=== PATIENT | female | born 1985 | race Caucasian/White ===

== ENCOUNTER 2016-12-15 20:31 | Inpatient (IN) | payer OTHER ==
[2016-12-15 21:12] VITALS: BMI 34.6
[2016-12-15] MEDS ORDERED: Promethazine HCl 25 MG/ML VIAL IM/IV PRN (21:51)
[2016-12-15] MEDS ORDERED: Calcium Gluc 4.6 MEQ/10 ML (100 MG/ML) SLOW IVP PRN (21:56)
[2016-12-15] MEDS ORDERED: Magnesium Sulfate 20 GM/WATER 500 ML BAG IVPB SCH (22:00)
[2016-12-15] MEDS ORDERED: Lactated Ringer's 1,000 ML IV SCH (22:00)
[2016-12-15] MEDS ORDERED: Magnesium Sulfate 20 gm/500 ml 20 GM/500 ML BAG IVPB SCH (22:00)
--- NOTE | 2016-12-15 22:03 | PRG ---
DATE OF SERVICE: 12/15/2016 FOLLOWUP DICTATION (cervical exam) TIME: 21:49 LOCATION: Labor and delivery. In brief, the LICENSED THERAPIST-3 has been collected and has been sent down to the laboratory. I performed a cervical digital examination after that was collected. The cervix is 3 cm dilated, 50% effaced with the bag of brady noted through the cervix. I have relayed the information of cervical dilation to the patient and we will now notify her primary caring provider/Dr. Wilson about the patient's cervical dilation status at 30 weeks and 6 days. I have also put in an order for a stat obstetrical ultrasound for estimated weight and presentation. I will also order Celestone for lung maturation and IV fluid hydration. I will leave the remainder of the care to Dr. Wilson. DX: 1. PCD vs PTL 2. 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 On Lovenox (check anti-factror Xa) 4. NICU notification MTDD
[2016-12-15] MEDS: Betamet Acet/Betamet Na Ph 30 MG/5 ML VIAL IM SCH (22:24)
[2016-12-15] MEDS: Lactated Ringer's 1,000 ML IV SCH (22:45)
[2016-12-15 23:03] LABS: #Eosinphils 0.2 thou/uL (0.0-0.7); #Lymphocytes 2.9 thou/uL (1.20-3.40); #Monocytes 0.7 thou/uL (0.11-0.59); #Neutrophils 8.7 thou/uL (1.40-6.50); %Basophils 0.3 % (0.0-1.0); %Eosinophils 1.7 % (0.0-10.0); %Lymphocytes 22.9 % (21.0-51.0); %Monocytes 5.9 % (0.0-10.0); Hematocrit 37.1 % (36.0-47.0); Mean Platelet Volume 8.4 fL (7.4-10.4); Red Blood Cell (RBC) Count 3.92 mill/uL (4.20-5.40); White Blood Cell (WBC) Count 12.6 thou/uL (4.8-10.8)
[2016-12-15] MEDS ORDERED: Morphine PF 1 MG/ML SYR ONE (23:06)
[2016-12-15] MEDS ORDERED: Ondansetron HCl/PF 4 MG/2 ML Vial ONE (23:07)
[2016-12-15] MEDS ORDERED: Oxytocin 10 UNITS/ML VIAL ONE (23:07)
[2016-12-15] MEDS ORDERED: CEFAZOLIN/Water 2 GM/20 ML SYRINGE SLOW IVP SCH (23:15)
[2016-12-15] MEDS ORDERED: Bicitra 30 ML UDCUP PO SCH (23:15)
[2016-12-15] MEDS ORDERED: ePHEDrine/0.9% NaCl/PF SYRINGE 50 mg/10 ml ONE (23:48)
--- NOTE | 2016-12-15 23:56 | PRG ---
DATE OF SERVICE: 12/15/2016 CRM MARKETING ANALYST NOTE In brief, I was asked by Dr. Katarina Wilson to assist with a primary section. The patient is currently in the OR in Labor and Delivery undergoing the spinal anesthetic. For full details of this procedure, please see the operative note to follow by Dr. Wilson.
--- NOTE | 2016-12-16 | ULT ---
OB ULTRASOUND: 12/15/16 HISTORY: labor. Real time images of the pelvis shows a single viable intrauterine in the breech presentati on. heart rate is 147 beats per minute. The amniotic fluid index is 11. The placenta is choir member ior and more fundal in location. measurements are as follows: BPD 7.4 cm 29 weeks, 4 days Head circumference 29.8 cm 30 weeks, 3 days Abdominal circumference 25.2 cm 29 weeks, 3 days Femur length 5.6 cm 29 weeks, 4 days Limited evaluation of anatomy was performed. No anomalies detected. There appears to be an ope n cervical os present with fluid in the region of the cervix. IMPRESSION: 1. Single viable intrauterine in a breech presentation. Overall measurements correspo nding to a gestational age of 29 weeks, 5 days. Estimated date of delivery 02/25/17. 2. Estimated weight 1420 plus or minus 210 grams. 3. Placenta which is posterior in location and more fundal. POS: [facility]
[2016-12-16] MEDS ORDERED: Promethazine HCl 25 MG/ML VIAL SLOW IVP PRN (00:46)
[2016-12-16] MEDS ORDERED: Morphine Sulfate 2 MG/ML SYRINGE SLOW IVP PRN (00:46)
[2016-12-16] MEDS ORDERED: Promethazine HCl 25 MG/ML VIAL IM PRN ×3 (00:46→00:58)
[2016-12-16] MEDS ORDERED: Promethazine HCl 25 MG SUPP PR PRN (00:47)
[2016-12-16] MEDS ORDERED: Ondansetron HCl/PF 4 MG/2 ML Vial IVP PRN ×2 (00:47→00:58)
[2016-12-16] MEDS ORDERED: Eucerin (Mineral Oil/Petrolatum,White) 30 gm Jar TOP PRN (00:47)
[2016-12-16] MEDS ORDERED: Naloxone HCl 0.4 mg/ml Vial IVP PRN ×2 (00:47)
[2016-12-16] MEDS ORDERED: Ketorolac Tromethamine 30 MG/ML VIAL IVP PRN (00:47)
[2016-12-16] MEDS ORDERED: Naloxone HCl 0.4 mg/ml Vial IV PRN (00:47)
--- NOTE | 2016-12-16 00:49 | PRG ---
DATE OF SERVICE: 12/15/2016 TIME: 2300 LOCATION: Labor and Delivery, bed #6. In brief, approximately 20 minutes ago, we performed a repeat cervical examination, which revealed t hat the cervix was 5 cm dilated. Ultrasound was in the room and confirmed that the baby was in a br eech malpresentation. There was some concern of possibly ruptured membranes; however, the bag was felt to be intact on vaginal exam. Since examination, I have been discussing the case with suhas natology, and the nursing staff. Anesthesia has also been made aware. The patient last used her he kel 24 hours ago, which decrease her risk of bleeding intraop. Nonetheless, I did advise protamin e sulfate to be in the room if necessary. The plan of care has been discussed with the patient and her . We will give the magnesium sulfate bolus for neuro protection as soon as possible as w e await anesthesia availability. Once again the diagnosis was made of active labor at 31 w eeks with footling breech. There also appears to be a hand in the lower uterine segment. Due to fe margret malpresentation, we will proceed with primary . Dr. Katarina Wilson is aware and i s on the way to the hospital.
[2016-12-16] MEDS ORDERED: Lanolin Ointment 7 GM TUBE TOP PRN (00:58)
[2016-12-16] MEDS ORDERED: Simethicone Chewable 80 MG TAB PO PRN (00:58)
[2016-12-16] MEDS ORDERED: Adacel (T-DAP) 0.5 ML VIAL IM ONE (00:58)
[2016-12-16] MEDS ORDERED: HYDROcodone/Acetaminophen 5/325 mg Tablet PO PRN (00:58)
[2016-12-16] MEDS ORDERED: Zolpidem Tartrate 5 MG TAB PO PRN (00:58)
[2016-12-16] MEDS ORDERED: Communication Order-Pharmacy FS SCH (01:00)
[2016-12-16] MEDS ORDERED: LR w/ Pitocin 40 units/1000 ML BAG IV SCH (01:00)
--- NOTE | 2016-12-16 01:01 | PRG ---
DATE OF SERVICE: 12/15/2016 TIME: 2129 This is a patient of Dr. Katarina Wilson. REASON FOR EVALUATION: The patient at 30 weeks and 6 days with white discharge and irregular contractions/cramps. HISTORY OF PRESENT ILLNESS: In brief, this is a patient who had a handwritten progress note/history and physical in the physical chart. For full details, please see that right up. In brief, she is a 31-year-old G6, P1 with 6 prior miscarriages who has been diagnosed with thrombophilia and is on Lovenox, low dose aspirin, and metformin. She is at 30 weeks and 6 days. She was told to come to Labor and Delivery by Dr. Wilson who wanted her evaluated for white discharge and possible contractions. PAST SURGICAL HISTORY: Includes tonsils and adenoids, breast augmentation, ACL surgery x2 and D and C x3. ALLERGIES: ZITHROMAX. REVIEW OF SYSTEMS: Complete review of systems was checked and is otherwise negative unless specified in the HPI. She has good movement and denies leakage of fluid or vaginal bleeding. Metformin is per HPI. PHYSICAL EXAMINATION: VITAL SIGNS: Blood pressure is 124/72, pulse is 76, temperature is 98.2, respiration is 18. GENERAL: Clinically, she is in no acute distress. PELVIC: Pelvic exam was currently deferred until SHOE IRONER-3 was obtained after which a cervical digital examination will be performed by me. Nonstress test is reactive per dates (after 32 weeks), but there is no evidence of contractions. There is no evidence of pathological decelerations. ASSESSMENT: This is multigravida who has a history of thrombophilia, currently on anticoagulation with Lovenox per her primary MD. She is also on low dose aspirin. PLAN: 1. Check SHOE IRONER-3. 2. Cervical check after SHOE IRONER-3. 3. monitors. 4. Notify Dr. Katarina Wilson after the plan of care evaluated and after test return. DUNIA
--- NOTE | 2016-12-16 01:15 | PRG ---
DATE OF SERVICE: 12/15/2016 TIME OF DICTATION: 2155 hours Follow up with Dr. Wilson. In brief, I just reviewed the patient's current medical condition with Dr. Wilson on the phone. She is covering for Dr. Powell. We reviewed if the patient is a factor V carrier on Lovenox. Due to her cervical dilation versus labor, we will admit for steroid administration. 1. We will give IV magnesium for neuroprotection. 2. We will notify NICU. 3. We will get an ultrasound for estimated weight. 4. Routine labs. 5. Sequential compression devices for venous thromboembolism prevention and hold Lovenox. 6. I suspect that she may be breech based on exam, but we will get the ultrasound to confirm positi on and EFW. 7. Dr. Wilson aware and we will assume care. 8. Her magnesium sulfate will be for neuroprotection not for tocolysis. If tocolysis is needed, we will begin a calcium channel kalen per guidelines.
[2016-12-16 03:17] LABS: CO2 Tension (PaCO2) 37.3 mmHg (44.0-56.0)
[2016-12-16] MEDS ORDERED: Oxytocin 10 UNITS/ML VIAL ONE (03:17)
[2016-12-16 05:37] LABS: Hematocrit 35.3 % (36.0-47.0); Mean Platelet Volume 8.9 fL (7.4-10.4); Red Blood Cell (RBC) Count 3.73 mill/uL (4.20-5.40); White Blood Cell (WBC) Count 17.4 thou/uL (4.8-10.8)
--- NOTE | 2016-12-16 05:55 | OP ---
DATE OF SERVICE: 12/15/2016 ADMITTING DIAGNOSES: 1. A 31-year-old G8, P0-1-6-1 at 30 weeks and 1 day with labor. 2. Intact membranes. 3. Group B streptococcus status unknown. 4. 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 5. 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 6. History of subchorionic bleed this . POSTOPERATIVE DIAGNOSES: 1. A 31-year-old G8, P0-1-6-1 at 30 weeks and 1 day with labor. 2. Intact membranes. 3. Group B streptococcus status unknown. 4. 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 5. 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 6. History of subchorionic bleed this . 7. Liveborn female infant weighing 3 pounds 7 ounces. Apgars unavailable at the time of delivery. CLINICAL HISTORY: This patient is a 31-year-old who called the evening of presentation with a compl aint of contractions or cramps that have been consistent in her lower back. She was also complainin g of pressure as well as increase in discharge and just all over malaise. The patient had tried hyd ration and rest; however, her symptoms seem to continue to escalate. The patient was advised to go to her registered hospital at [facility] for evaluation and treatment, especially given the fact lew t she has a poor OB history and the history of complex thrombophilia for the . The patient has been on Lovenox and her last dose was greater than 24 hours. She was evaluated by Dr. Bakari simon, the laborist at [facility] and was noted to be stable with overall reassuring tracing with irr itability. The exam concluded with a sterile vaginal exam, which noted that the patient was 3-cm di lated approximately 70%-80% effaced. At that point in time, the patient was admitted and placed on magnesium for neuro protection. She was also given 1 dose of betamethasone for lung mat urity and was on continuous monitoring. Ultrasound was ordered for overall evaluation of fetus with estimated growth and DOMINIQUE as well as position, it was noted that the fetus was breech. Normal DOMINIQUE and overall active baby with intact membranes. The patient shortly after the ultrasound did fa il a gush of fluid. She was checked again and was noted to not be ruptured; however, she had advanc ed and cervical dilation from 3 cm to 5 cm, 80% effaced. At that time, the group partner was called to come in for management and care. The patient was consented and taken to the operating room samson lucero the procedure was as follows. DETAILS OF PROCEDURE: The patient was taken to the operating room where spinal anesthesia was obtai prakash. She was placed in the supine position with leftward tilt. She was prepped and draped in the u sual sterile fashion and the heart tones were evaluated. Once the patient was appropriately p repped and draped, and the Noe catheter was placed. She was tested for appropriate anesthesia and an incision was made in the lower abdomen in a Pfannenstiel manner with scalpel. This was carried down to the fascia with the Bovie cautery and the fascia was nicked in the midline. This incision w as extended with sharp dissection. The Tyree clamps were used x2 to elevate the rectus muscles off the superior fascial border and then in similar fashion, the rectus and pyramidalis muscles were di ssected from the lower border. The rectus muscles were then in the midline and the perito neum was bluntly entered and this incision was extended. A bladder blade was placed and the anterio r surface of the uterus was swept with surgeon's hand and no adhesions were noted. The scalpel was used to make an incision in the lower uterine segment and an amniotomy was performed. The amnion fl uid was clear. The surgeon's hand was then placed into the uterus and the buttocks were deliv ered through the incision. The legs were then delivered, the anterior shoulder followed by the post erior shoulder, and then a tilt of the head resulted in delivery of the head. The cord was do ubly clamped and cut, and the fetus was taken over to the team in attendance to the deliver y for continued care. The cord blood was obtained. A section of the umbilical cord was taken for c ord gas; however, it was noted that the cord was short and probably inappropriate sample. The place nta was then manually removed and sent off for pathology. The uterus was then exteriorized and marc nsed of all debris. The uterus was then closed in a running locking fashion with excellent hemostas is. A secondary suture was placed embricating over this one and then the bladder flap was reapproxi mated with a 4-0 Monocryl. The gutters were cleansed of all debris and the Seprafilm was placed ove r the uterus. The adnexal structures were noted to be normal on each side. The uterus was then giuliana piyush back inside the abdomen and the peritoneum was closed in a running fashion. The rectus muscles were then reapproximated with interrupted sutures and the prefascial gutters were cleansed of all de bris. The fascia was then closed with a running suture and the subcutaneous tissue was cleansed of all debris with copious irrigation. The subcutaneous tissue was reapproximated and secured with int errupted sutures in the 2-0 plain gut and the skin was closed with a 4-0 Monocryl. The patient tole rated the procedure well. The skin was reinforced with Steri-Strips and a pressure dressing was giuliana piyush over the incision. The patient was sent to the recovery room in satisfactory condition with her infant going to the NICU for continued care. All needle, sponge, lap, and instrument counts were c orrect x2 at the end of the procedure. There were no other issues surrounding this procedure. Aliyah mated blood loss was 500 mL and pathology for the placenta is pending.
[2016-12-16] MEDS: Ibuprofen 800 MG TAB PO SCH ×3 (08:26→22:35)
[2016-12-16] MEDS: Lactated Ringer's 1,000 ML IV SCH ×3 (08:26→22:36)
[2016-12-16] MEDS: Enoxaparin Sodium 40 MG/0.4 ML SYRINGE SC SCH (08:57)
[2016-12-16] MEDS: Prenatal Vitamin 1 TAB PO SCH (08:57)
[2016-12-16] MEDS: Docusate (Surfak) 240 MG CAP PO SCH ×2 (08:57→22:35)
[2016-12-16] MEDS ORDERED: Escitalopram Oxalate 20 mg Tablet PO SCH (13:30)
[2016-12-16] MEDS: diphenhydrAMINE 50 MG/ML VIAL IVP PRN ×2 (15:14→22:35)
[2016-12-16] MEDS: Betamet Acet/Betamet Na Ph 30 MG/5 ML VIAL IM SCH (19:32)
[2016-12-16] MEDS ORDERED: Sodium Chloride 0.9% 10 ML ONE ×2 (20:00→21:36)
[2016-12-17] MEDS: Ibuprofen 800 MG TAB PO SCH ×3 (06:07→21:26)
[2016-12-17] MEDS: Lactated Ringer's 1,000 ML IV SCH ×3 (06:09→22:00)
[2016-12-17] MEDS ORDERED: Escitalopram Oxalate 20 mg Tablet PO SCH ×2 (09:00→21:00)
[2016-12-17] MEDS: Docusate (Surfak) 240 MG CAP PO SCH ×2 (11:00→21:26)
[2016-12-17] MEDS: Prenatal Vitamin 1 TAB PO SCH (11:00)
[2016-12-17] MEDS: HYDROcodone/Acetaminophen 5/325 mg Tablet PO PRN ×2 (11:00→14:24)
[2016-12-17] MEDS: Enoxaparin Sodium 40 MG/0.4 ML SYRINGE SC SCH (11:04)
[2016-12-18] MEDS: Lactated Ringer's 1,000 ML IV SCH (06:00)
[2016-12-18] MEDS: Ibuprofen 800 MG TAB PO SCH ×2 (06:24→14:46)
[2016-12-18] MEDS: Docusate (Surfak) 240 MG CAP PO SCH (09:15)
[2016-12-18] MEDS: Prenatal Vitamin 1 TAB PO SCH (09:15)
[2016-12-18] MEDS: Enoxaparin Sodium 40 MG/0.4 ML SYRINGE SC SCH (09:19)
[2016-12-18 14:12] VITALS: BP 119/61; TEMP 99.1
--- OUTSIDE RECORDS SUMMARY | 2016-12-20 09:08 | XMS | Continuity of Care Document ---
:1985 Author Organization [facility] Care Team Providers Name Role Phone Anibal Byrnes Primary Care Physician Insurance Providers Payer Name Policy Number Subscriber Name Relationship REBA [id number] MAHAD PAUL SELF/SAME PATIENT Advance Directives Directive Response Recorded Date/Time Code Status Level I-Full Code 10/17/16 1:05pm Advance Directive? N 10/17/16 12:58pm Living Will? N 10/17/16 12:58pm Health Care Proxy? N 10/17/16 12:58pm Healthcare Power of Director Instructional Material? N 10/17/16 12:58pm Is the patient an Organ Donor? N 10/17/16 12:58pm Chief Complaint and Reason for Visit Reason for Visit 22 WK OB,LOW BACK PAIN Problems Active Medical Problems Problem Onset Date Recorded Date Status Ovarian cyst, bilateral Unknown 01/09/14 Active Headache Unknown 12/31/14 Active Sinusitis, acute Unknown 12/31/14 Active Unknown 10/17/16 Active Back pain affecting in second trimester Unknown 10/18/16 Active Medications Current Home Medications Medication Dose Units Route Directions Days/Qty Instructions Start Date Hydrocodone-Aceta 1 TAB By Mouth EVERY FOUR HOURS 30 10/18/16 minophen (NORCO 5 NEEDED as MG/325 MG TAB) 5 needed for MG/325 MG TAB ABDOMINAL PAIN Ondansetron ODT 8 MG By Mouth EVERY EIGHT 30 10/18/16 (ZOFRAN 8 MG ODT) HOURS NEEDED 8 MG TAB as needed for NAUSEA/VOMITING Past Home Medications Medication Directions Ordered Status Amoxicillin Trihydrate THREE TIME A DAY(;15;21) 12/31/14 Discontinued (Amoxicillin 500 Mg) 500 Mg Cap Cap, 500 Mg By Mouth Aspirin (Asa Lo-Dose) 81 Mg Tab EVERY DAY @ 0900 Unknown Discontinued Tab, 81 Mg Oral Ciprofloxacin Hcl (Cipro 500 Mg TWICE A DAY (899; 2099) Unknown Discontinued Tab) 500 Mg Tab Tab, 500 Mg By Mouth Enoxaparin Sodium (Lovenox) 40 EVERY DAY @ 0900 Unknown Discontinued Mg/0.4 Ml Inj Inj, 40 Mg Enoxaparin Sodium (Lovenox) 40 Unknown Discontinued Mg/0.4 Ml Inj Inj, 40 Mg Ibuprofen (Motrin 800 Mg Tab) 800 Unknown Discontinued Mg Tab Tab, 800 Mg By Mouth Metformin Hydrochloride TWICE A DAY (899; 2099) Unknown Discontinued (Metformin) 1,000 Mg Tab Tab, 1,000 Mg Oral Norgestimate-Ethinyl Estradiol EVERY DAY @ 0900 Unknown Discontinued (Ortho Tri-Cyclen Lo Tab (Bcp)) 1 Tab Tab Tab, 1 Tab Oral Prednisone Dose Pack (Prednisone GIVE DIRECTED BY PHYSICIAN 12/31/14 Discontinued 10MG Taper Pack) 10 Mg Major Major, 10 Mg By Mouth Vit W/ Ferrous Fumara EVERY DAY @ 0900 Unknown Discontinued () Tab Tab, 1 Tab Oral Vit W/ Ferrous Fumara Unknown Discontinued () 1 Tab Tab Tab, 1 Tab Oral Progesterone (Endometrin 100 Mg TWICE A DAY (899; 2099) Unknown Discontinued Vag Supp) 100 Mg Sup Sup, 200 Mg Vaginal Social History Problem Response Recorded Date Recreational drugs? N 12/31/14 Alcohol? N 12/31/14 Query Response Start Date Stop Date Smoking Status: Unknown Hospital Discharge Instructions Diagnosis: Goal: HOME Intervention: ASSESSMENT AND MONITORING. LABWORK, TEACHING Anticipated Discharge Date 10/18/16 Anticipated Discharge Time 1315 Plan of Care Discharge Date 10/18/16 Disposition HOME/SELF CARE Instructions/Education Provided DI for -- Discomforts and Remedies Forms Provided Patient Portal [employer] Instruct DI How to Quit Smoking Prescriptions See Medications Section Additional Instructions/Education FOLLOW UP JHONY WITH PRIVATE OB DOCTOR. Care Plan and Goals See Discharge Instructions section Functional Status No functional status results. Allergies, Adverse Reactions, Alerts Allergen Type Severity Reaction Status Last Updated Azithromycin Allergy Unknown Active 12/31/14 Immunizations No Known History of Immunizations. Vital Signs No Known Vital Signs Results. Results Laboratory Results Test Name Result Units Flags Reference Collection Result Comments Date/Time Date/Time White Blood Count 8.5 K/uL 4.8-10.8 10/17/16 10/17/16 2:55pm 3:06pm Red Blood Count 3.63 M/uL L 3.70-5.40 10/17/16 10/17/16 2:55pm 3:06pm Hemoglobin 11.0 g/dL L 12.0-16.0 10/17/16 10/17/16 2:55pm 3:06pm Hematocrit 33.6 % L 37.0-47.0 10/17/16 10/17/16 2:55pm 3:06pm Mean Corpuscular 92.4 fl 80.0-100.0 10/17/16 10/17/16 Volume 2:55pm 3:06pm Mean Corpuscular 30.3 pg 27.0-31.0 10/17/16 10/17/16 Hemoglobin 2:55pm 3:06pm Mean Corpuscular 32.8 g/dL 32.0-36.0 10/17/16 10/17/16 Hgb Concent Diff 2:55pm 3:06pm Red Cell 12.9 % 11.5-14.5 10/17/16 10/17/16 Distribution Width 2:55pm 3:06pm Platelet Count 211 K/uL 130-400 10/17/16 10/17/16 2:55pm 3:06pm Mean Platelet 9.9 fl 7.4-10.4 10/17/16 10/17/16 Volume 2:55pm 3:06pm Granulocytes (%) 78.7 % H 50.0-75.0 10/17/16 10/17/16 2:55pm 3:06pm Lymphocytes % 16.6 % L 20.0-40.0 10/17/16 10/17/16 2:55pm 3:06pm Monocytes % 3.2 % 0.0-15.0 10/17/16 10/17/16 2:55pm 3:06pm Eosinophils % 1.3 % 0.0-10.0 10/17/16 10/17/16 2:55pm 3:06pm Basophils % 0.2 % 0.0-2.0 08/22/17 08/22/17 2:55pm 3:06pm Granulocytes # 6.7 K/uL H 1.8-6.4 10/17/16 10/17/16 2:55pm 3:06pm Lymphocytes # 1.4 K/uL 1.2-3.6 10/17/16 10/17/16 2:55pm 3:06pm Monocytes # 0.3 K/uL 0.3-0.9 10/17/16 10/17/16 2:55pm 3:06pm Eosinophils # 0.1 K/UL 0.0-0.5 10/17/16 10/17/16 2:55pm 3:06pm Basophils # 0.0 K/UL 0.0-0.2 10/17/16 10/17/16 2:55pm 3:06pm Manual NO 10/17/16 10/17/16 Differential 2:55pm 3:06pm Sodium Level 132 mmol/L L 135-144 10/17/16 10/17/16 2:55pm 3:23pm Potassium Level 3.4 mmol/L L 3.5-5.1 10/17/16 10/17/16 2:55pm 3:23pm Chloride Level 108 mmol/L 101-111 10/17/16 10/17/16 2:55pm 3:23pm Carbon Dioxide 21 mmol/L L 22-32 10/17/16 10/17/16 Level 2:55pm 3:23pm Anion Gap 6.4 mmol/L L 10-20 10/17/16 10/17/16 2:55pm 3:23pm Glucose Level 175 mg/dL H 70-109 10/17/16 10/17/16 Random glucose > 200 mg/dL in a patient with typical 2:55pm 3:23pm symptoms of diabetes (polydipsia, polyuria and unexplained weight loss) satisfies ADA criteria for diabetes mellitus if confirmed by repeat testing on another day. Confirmation is unnecessary when acute metabolic decompensation with hyperglycemia is manifested. Reference: Report of the Expert Committee on the Diagnosis and Classification of Diabetes Mellitus. Diabetes Care, 20:1183, 1997. Blood Urea 9 mg/dL 8-10/17/16 10/17/16 Nitrogen 2:55pm 3:23pm Creatinine 0.50 mg/dL 0.44-1.00 10/17/16 10/17/16 2:55pm 3:23pm EGFR Note 142.2 63.8-143.2 10/17/16 10/17/16 eGFR (Estimated Glomerular Filtration Rate) 2:55pm 3:23pm eGFR calculation value obtained using the [facility] Quadratic (MCQ) equation. The reportable reference range is recommended to be greater than 60 ml/min/1.73m. This is an estimation of the patient's GFR and clinical correlation is recommended. This eGFR calculation does not account for race. This result may differ from other equations available. Calcium Level 8.1 mg/dL L 8.9-10.3 10/17/16 10/17/16 2:55pm 3:23pm Albumin 3.0 g/dL L 3.5-5.0 10/17/16 10/17/16 2:55pm 3:23pm Total Bilirubin < 0.2 mg/dL L 0.3-1.2 10/17/16 10/17/16 2:55pm 3:23pm Alkaline 52 IU/L 32-91 10/17/16 10/17/16 Phosphatase 2:55pm 3:23pm Total Protein 6.1 g/dL L 6.5-8.1 10/17/16 10/17/16 2:55pm 3:23pm Alanine 13 IU/L 7-55 10/17/16 10/17/16 Aminotransferase 2:55pm 3:23pm (ALT/SGPT) Aspartate Amino 18 IU/L 15-41 10/17/16 10/17/16 Transf (AST/SGOT) 2:55pm 3:23pm Globulin 3.1 g/dL 2.3-3.5 10/17/16 10/17/16 2:55pm 3:23pm Albumin/Globulin 1.0 L 1.2-2.2 10/17/16 10/17/16 Ratio 2:55pm 3:23pm Urine Color YELLOW YELLOW 10/17/16 10/17/16 6:00pm 1:27pm Urine Appearance CLEAR CLEAR 10/17/16 10/17/16 6:00pm 1:27pm Urine Glucose NEGATIVE mg/dL NEGATIVE 10/17/16 10/17/16 6:00pm 1:27pm Urine Bilirubin NEGATIVE NEGATIVE 10/17/16 10/17/16 6:00pm 1:27pm Urine Ketones NEGATIVE NEGATIVE 10/17/16 10/17/16 6:00pm 1:27pm Urine Specific 1.025 1.002-1.03 10/17/16 10/17/16 [place] 0 6:00pm 1:27pm Urine Blood NEGATIVE NEGATIVE 10/17/16 10/17/16 6:00pm 1:27pm Urine pH 6.5 4.5-8.0 10/17/16 10/17/16 6:00pm 1:27pm Urine Protein NEGATIVE mg/dL NEGATIVE 10/17/16 10/17/16 6:00pm 1:27pm Urine Urobilinogen 0.2 E.U./d 0.2 10/17/16 10/17/16 L 6:00pm 1:27pm Urine Nitrite NEGATIVE NEGATIVE 10/17/16 10/17/16 6:00pm 1:27pm Urine Leukocyte NEGATIVE NEGATIVE 10/17/16 10/17/16 Esterase 6:00pm 1:27pm Urine Microscopic NO NO 10/17/16 10/17/16 Indicated 6:00pm 1:27pm Procedures No Known History of Procedures. Encounters Encounter Location Arrival/Admit Date Discharge/Depart Date Attending Provider Discharged [place] 10/17/16 12:57pm 10/18/16 2:30pm JÚNIOR GONZALES [facility] Encounter Diagnosis Onset Date
== END 2016-12-18 15:25 | disposition home or self-care (01) | DRG 765 ==
LOC: L&D/OP 20:31 → L&D 22:20 → 3SW 12-16 02:16
PROVIDERS: ADMIT Obstetrics & Gynecology; ATTEND Obstetrics & Gynecology
PROC: 10D00Z1 Extraction of Products of Conception, Low, Open Approach (ICD-10-PCS; principal; 2016-12-15)
DX: O60.14X0 Preterm labor third trimester with preterm delivery third trimester, not applicable or unspecified (principal); D68.2 Hereditary deficiency of other clotting factors; O99.113 Other diseases of the blood and blood-forming organs and certain disorders involving the immune mechanism complicating pregnancy, third trimester; Z37.0 Single live birth; Z3A.30 30 weeks gestation of pregnancy; Z79.01 Long term (current) use of anticoagulants; Z79.82 Long term (current) use of aspirin; Z88.1 Allergy status to other antibiotic agents; O64.8XX0 Obstructed labor due to other malposition and malpresentation, not applicable or unspecified
CPT/HCPCS: 36415; 76805; 82805; 85025; 85027; 85520; 86780; 86850; 86900; 86901; 87340; 87389; 87480; 87510; 87660; 88307; A4216; J0702; J1200; J1650; J1885; J2274; J2310; J2405; J2590; J3475

== ENCOUNTER 2018-06-29 10:50 | Emergency (ER) | payer OTHER ==
[2018-06-29 11:45] LABS: #Eosinphils 0.1 thou/uL (0.0-0.7); #Monocytes 0.4 thou/uL (0.11-0.59); #Neutrophils 5.8 thou/uL (1.40-6.50); %Basophils 0.2 % (0.0-1.0); %Eosinophils 1.1 % (0.0-10.0); %Lymphocytes 14.1 % (21.0-51.0); %Monocytes 5.9 % (0.0-10.0); %Neutrophils 78.8 % (42.0-75.0); Hemoglobin 12.9 g/dL (12.0-16.0); Mean Corpuscular HGB CONC 34.2 g/dL (32.0-36.0); Mean Corpuscular Hemoglobin 31.3 pg (27.0-31.0); Mean Corpuscular Volume 91.5 fL (78.0-98.0); Mean Platelet Volume 9.3 fL (7.4-10.4); Platelet Count 223 thou/uL (130-400); RBC Distribution Width 11.7 % (11.5-14.5); Red Blood Cell (RBC) Count 4.13 mill/uL (4.20-5.40); White Blood Cell (WBC) Count 7.3 thou/uL (4.8-10.8)
[2018-06-29 12:07] LABS: ALT (SGPT) 13 U/L (8-55); AST (SGOT) 12 U/L (5-34); Albumin 3.8 g/dL (3.5-5.0); Alkaline Phosphatase 68 U/L (40-150); Anion Gap 13 mmol/L (10-20); BUN (Urea Nitrogen) 7 mg/dL (7.0-18.7); Bilirubin, Total 0.5 mg/dL (0.2-1.2); Calc. Creatinine Clearance 0 mL/min (70-130); Calcium 9.3 mg/dL (7.8-10.44); Carbon Dioxide 24 mmol/L (22-29); Chloride 103 mmol/L (98-107); Estimated GFR-MDRD Greater than 90; Globulin 3.4 g/dL (2.4-3.5); Glucose 92 mg/dL (70-105); Lipase 13 U/L (8-78); Potassium 3.9 mmol/L (3.5-5.1); Protein, Total 7.2 g/dL (6.0-8.3); Sodium 136 mmol/L (136-145)
[2018-06-29] MEDS ORDERED: Ondansetron PF 4 MG/2 ML Vial ONE (12:52)
[2018-06-29] MEDS ORDERED: Promethazine HCl 25 MG/ML VIAL ONE (13:01)
[2018-06-29] MEDS ORDERED: Metoclopramide HCl 10 MG/2 ML VIAL ONE (13:37)
== END 2018-06-29 16:05 | disposition home or self-care (01) ==
LOC: ERS 10:50
DX: O21.1 Hyperemesis gravidarum with metabolic disturbance (principal); O99.342 Other mental disorders complicating pregnancy, second trimester; F41.9 Anxiety disorder, unspecified; Z79.899 Other long term (current) drug therapy; Z79.01 Long term (current) use of anticoagulants; Z3A.16 16 weeks gestation of pregnancy
CPT/HCPCS: 36415; 80053; 83690; 85025; 96361; 96365; 96366; 96375; J2405; J2550; J2765

== ENCOUNTER 2018-07-23 12:59 | Emergency (ER) | payer OTHER | END 2018-07-23 13:25 | disposition left against medical advice (07) | LOC: ERS 12:59 | DX: Z53.21 Procedure and treatment not carried out due to patient leaving prior to being seen by health care provider (principal) ==

== ENCOUNTER 2018-07-30 16:04 | Observation (INO) | payer OTHER ==
[2018-07-30] MEDS ORDERED: Butorphanol Tartrate 1 MG/ML VIAL ONE (16:23)
[2018-07-30] MEDS ORDERED: Ondansetron PF 4 MG/2 ML Vial IVP PRN (16:30)
[2018-07-30] MEDS ORDERED: Promethazine HCl 25 MG/ML VIAL IM PRN (16:30)
[2018-07-30 17:03] LABS: #Eosinphils 0.1 thou/uL (0.0-0.7); #Lymphocytes 1.7 thou/uL (1.20-3.40); #Monocytes 0.5 thou/uL (0.11-0.59); #Neutrophils 7.3 thou/uL (1.40-6.50); %Basophils 0.1 % (0.0-1.0); %Eosinophils 1.3 % (0.0-10.0); %Lymphocytes 17.9 % (21.0-51.0); %Monocytes 5.6 % (0.0-10.0); %Neutrophils 75.1 % (42.0-75.0); Hemoglobin 12.2 g/dL (12.0-16.0); Mean Corpuscular Hemoglobin 30.6 pg (27.0-31.0); Mean Corpuscular Volume 92.6 fL (78.0-98.0); Mean Platelet Volume 9.9 fL (7.4-10.4); Platelet Count 238 thou/uL (130-400); RBC Distribution Width 11.9 % (11.5-14.5); Red Blood Cell (RBC) Count 3.98 mill/uL (4.20-5.40); White Blood Cell (WBC) Count 9.7 thou/uL (4.8-10.8)
[2018-07-30] MEDS: Butorphanol Tartrate 1 MG/ML VIAL SLOW IVP PRN ×2 (17:22→22:04)
[2018-07-30] MEDS: metroNIDAZOLE 500 MG in Premix Bag 1 BAG IVPB SCH (17:23)
[2018-07-30] MEDS: Dextrose 5%-Lactated Ringers 1,000 ML IV SCH ×2 (17:24→22:05)
[2018-07-30 18:11] VITALS: BMI 33.7
[2018-07-30] MEDS ORDERED: Zolpidem Tartrate 5 MG TAB PO PRN (21:44)
[2018-07-30] MEDS ORDERED: Enoxaparin Sodium 100 MG/ML SYRINGE SC SCH (22:30)
[2018-07-30] MEDS ORDERED: Enoxaparin Sodium 40 MG/0.4 ML SYRINGE SC SCH (22:30)
[2018-07-31] MEDS: Butorphanol Tartrate 1 MG/ML VIAL SLOW IVP PRN ×6 (02:38→21:16)
[2018-07-31] MEDS: Dextrose 5%-Lactated Ringers 1,000 ML IV SCH ×3 (05:08→21:20)
[2018-07-31] MEDS: metroNIDAZOLE 500 MG in Premix Bag 1 BAG IVPB SCH (08:19)
[2018-07-31] MEDS ORDERED: Enoxaparin Sodium 100 MG/ML SYRINGE SC SCH (21:00)
[2018-07-31] MEDS ORDERED: metroNIDAZOLE 0.75% 70 GM TUBE VAG SCH (21:00)
[2018-07-31] MEDS ORDERED: Enoxaparin Sodium 40 MG/0.4 ML SYRINGE SC SCH (21:00)
[2018-08-01] MEDS: Butorphanol Tartrate 1 MG/ML VIAL SLOW IVP PRN (02:06)
[2018-08-01 08:48] VITALS: BP 100/52; TEMP 98
[2018-08-01] MEDS: Dextrose 5%-Lactated Ringers 1,000 ML IV SCH (08:53)
== END 2018-08-01 09:52 | disposition home health service (06) ==
LOC: INTOOBSV 16:04 → L&D 16:04 → 3SW 21:41
PROVIDERS: ADMIT Obstetrics & Gynecology; ATTEND Obstetrics & Gynecology
DX: O23.592 Infection of other part of genital tract in pregnancy, second trimester (principal); N76.0 Acute vaginitis; O26.892 Other specified pregnancy related conditions, second trimester; R10.9 Unspecified abdominal pain; O09.92 Supervision of high risk pregnancy, unspecified, second trimester; Z3A.19 19 weeks gestation of pregnancy; Z87.51 Personal history of pre-term labor; Z88.1 Allergy status to other antibiotic agents; Z79.82 Long term (current) use of aspirin; Z79.899 Other long term (current) drug therapy
CPT/HCPCS: 85025; 96361; 96365; 96372; 96375; 96376; G0378; J0595; J1650; J2405

== ENCOUNTER 2018-08-27 15:36 | Observation (INO) | payer OTHER ==
[2018-08-27] MEDS ORDERED: Promethazine HCl 25 MG/ML VIAL IM PRN (16:13)
[2018-08-27] MEDS ORDERED: Ondansetron PF 4 MG/2 ML Vial IVP PRN (16:13)
[2018-08-27 16:27] VITALS: BMI 35.2
[2018-08-27] MEDS: Dextrose 5%-Lactated Ringers 1,000 ML IV SCH ×2 (16:49→21:50)
[2018-08-27] MEDS: CEFAZOLIN 2 GM in Premix Bag 1 BAG IVPB SCH (17:15)
[2018-08-27] MEDS ORDERED: Zolpidem Tartrate 5 MG TAB PO SCH (21:15)
[2018-08-27] MEDS ORDERED: Enoxaparin Sodium 40 MG/0.4 ML SYRINGE SC SCH (21:15)
[2018-08-27] MEDS ORDERED: Enoxaparin Sodium 100 MG/ML SYRINGE SC SCH (21:15)
[2018-08-28 08:12] VITALS: BP 121/68; TEMP 98.6
[2018-08-28] MEDS: CEFAZOLIN 2 GM in Premix Bag 1 BAG IVPB SCH (10:36)
== END 2018-08-28 11:47 | disposition home health service (06) ==
LOC: L&D/OP 15:36 → L&D 18:18 → INTOOBSV 18:18
PROVIDERS: ADMIT Obstetrics & Gynecology; ATTEND Obstetrics & Gynecology
DX: O21.2 Late vomiting of pregnancy (principal); O23.42 Unspecified infection of urinary tract in pregnancy, second trimester; O47.02 False labor before 37 completed weeks of gestation, second trimester; O99.342 Other mental disorders complicating pregnancy, second trimester; F41.9 Anxiety disorder, unspecified; O99.112 Other diseases of the blood and blood-forming organs and certain disorders involving the immune mechanism complicating pregnancy, second trimester; D68.51 Activated protein C resistance; Z3A.23 23 weeks gestation of pregnancy; Z79.01 Long term (current) use of anticoagulants; Z79.82 Long term (current) use of aspirin; Z79.899 Other long term (current) drug therapy; Z88.1 Allergy status to other antibiotic agents; Z98.890 Other specified postprocedural states
CPT/HCPCS: 96361; 96365; 96372; 96375; 99285; G0378; J0690; J1650; J2405; J2550

== ENCOUNTER 2018-10-22 10:38 | Observation (INO) | payer OTHER ==
[2018-10-22] MEDS ORDERED: Betamet Acet/Betamet Na Ph 30 MG/5 ML VIAL ONE (11:23)
[2018-10-22] MEDS: Betamet Acet/Betamet Na Ph 30 MG/5 ML VIAL IM SCH (11:31)
[2018-10-22] MEDS: Dextrose 5%-Lactated Ringers 1,000 ML IV SCH ×2 (11:45→18:24)
[2018-10-22] MEDS ORDERED: hydrOXYzine Pamoate 25 mg Capsule PO SCH (13:45)
[2018-10-22] MEDS ORDERED: Acetaminophen 500 MG TAB PO SCH (13:45)
[2018-10-22 15:11] VITALS: BMI 34.1
[2018-10-22 18:53] LABS: Bilirubin Negative (Negative); Blood, Urine Negative (Negative); Clarity Turbid (Clear); Glucose, Urine (Dipstick) 200 mg/dL (Negative); Leukocyte Negative Leu/uL (Negative); Nitrite Negative (Negative); Protein, Urine (Dipstick) Negative (Neg-Trace); RBC/HPF 0-3 HPF (0-3); Squamous Epithelial 0-3 HPF (0-3); Urobilinogen Normal mg/dL (Less than 2); WBC/HPF None Seen HPF (0-3)
[2018-10-22 19:07] LABS: Bacteria/HPF Rare-Few HPF (None Seen)
[2018-10-22] MEDS: Enoxaparin Sodium 40 MG/0.4 ML SYRINGE SC SCH (21:17)
[2018-10-22] MEDS ORDERED: Zolpidem Tartrate 5 MG TAB PO PRN (21:53)
[2018-10-23] MEDS ORDERED: Butorphanol Tartrate 1 MG/ML VIAL ONE (09:42)
[2018-10-23] MEDS ORDERED: hydrOXYzine Pamoate 25 mg Capsule PO SCH (09:45)
[2018-10-23] MEDS ORDERED: Butorphanol Tartrate 1 MG/ML VIAL SLOW IVP SCH (09:45)
[2018-10-23] MEDS: Betamet Acet/Betamet Na Ph 30 MG/5 ML VIAL IM SCH (11:22)
[2018-10-23] MEDS: Acetaminophen 500 MG TAB PO PRN ×2 (13:47→20:38)
[2018-10-23 15:37] VITALS: BP 120/57; TEMP 98.2
[2018-10-23] MEDS: Enoxaparin Sodium 40 MG/0.4 ML SYRINGE SC SCH (20:40)
[2018-10-23] MEDS ORDERED: hydrOXYzine Pamoate 25 mg Capsule PO PRN (22:09)
[2018-10-23] MEDS ORDERED: Zolpidem Tartrate 5 MG TAB PO PRN (22:10)
== END 2018-10-24 10:35 | disposition home health service (06) ==
LOC: L&D/OP 10:38 → L&D 11:03 → INTOOBSV 11:03
PROVIDERS: ADMIT Obstetrics & Gynecology; ATTEND Obstetrics & Gynecology
DX: O60.03 Preterm labor without delivery, third trimester (principal); O09.293 Supervision of pregnancy with other poor reproductive or obstetric history, third trimester; Z3A.31 31 weeks gestation of pregnancy; Z79.01 Long term (current) use of anticoagulants; Z79.82 Long term (current) use of aspirin; Z88.1 Allergy status to other antibiotic agents
CPT/HCPCS: 81001; 87480; 87510; 87660; 96360; 96361; 96372; G0378; J0595; J0702; J1650; Q0177

== ENCOUNTER 2022-03-10 08:03 | Outpatient (CLI) | payer BC | END 2022-03-10 08:04 | disposition home or self-care (01) | LOC: BICMAMMO 08:03 | PROVIDERS: ATTEND Obstetrics & Gynecology | DX: R68.89 Other general symptoms and signs (principal); N63.25 Unspecified lump in the left breast, overlapping quadrants; T85.898A Other specified complication of other internal prosthetic devices, implants and grafts, initial encounter | CPT/HCPCS: 77066; G0279 ==

== ENCOUNTER 2022-04-20 14:13 | Inpatient (IN) | payer OTHER, BC ==
[~2022-04-20 14:13] MED LIST: Iopamidol-370 76% 500 ML MDV (1 ML CHARGE) ONE
[2022-04-20] MEDS ORDERED: Ondansetron PF 4 MG/2 ML Vial ONE (15:08)
[2022-04-20] MEDS ORDERED: Morphine 4 MG/ML VIAL ONE (15:08)
[2022-04-20 15:09] LABS: #Eosinphils 0.2 thou/uL (0.0-0.7); #Lymphocytes 1.7 thou/uL (1.20-3.40); #Monocytes 0.6 thou/uL (0.11-0.59); #Neutrophils 8.8 thou/uL (1.40-6.50); %Basophils 0.1 % (0.0-1.0); %Eosinophils 1.8 % (0.0-10.0); %Lymphocytes 15.1 % (21.0-51.0); %Monocytes 5.1 % (0.0-10.0); %Neutrophils 77.9 % (42.0-75.0); Hemoglobin 13.5 g/dL (12.0-16.0); Mean Corpuscular HGB CONC 33.6 g/dL (32.0-36.0); Mean Corpuscular Hemoglobin 31.2 pg (27.0-31.0); Mean Corpuscular Volume 92.7 fl (78.0-98.0); Mean Platelet Volume 9.7 fL (7.4-10.4); Platelet Count 305 10x3/uL (130-400); RBC Distribution Width 11.3 % (11.5-14.5); Red Blood Cell (RBC) Count 4.33 mill/uL (4.20-5.40); White Blood Cell (WBC) Count 11.2 10x3/uL (4.8-10.8)
[2022-04-20] MEDS ORDERED: Pantoprazole 40 MG VIAL ONE (15:28)
[2022-04-20 15:30] LABS: ALT (SGPT) 24 U/L (8-55); AST (SGOT) 24 U/L (5-34); Albumin 4.4 g/dL (3.5-5.0); Alkaline Phosphatase 92 U/L (40-110); Anion Gap 15 mmol/L (10-20); BUN (Urea Nitrogen) 17 mg/dL (7.0-18.7); Calc. Creatinine Clearance 0 mL/min (70-130); Calcium 9.4 mg/dL (7.8-10.44); Carbon Dioxide 21 mmol/L (22-29); Chloride 106 mmol/L (98-107); Estimated GFR 98; Glucose 92 mg/dL (70-105); Lipase 21 U/L (8-78); Potassium 3.9 mmol/L (3.5-5.1); Protein, Total 7.4 g/dL (6.0-8.3); Sodium 138 mmol/L (136-145)
[2022-04-20 15:49] LABS: BHCG - Serum Negative (NEGATIVE); Pregs Control Background? CLEAR/WHITE (CLR/WHITE); Pregs Control Bar Appear? YES (CONTROL BAR)
[2022-04-20 15:53] LABS: CKMB 4.1 ng/mL (0-6.6)
[2022-04-20] MEDS ORDERED: Aspirin Chewable 81 MG TAB ONE (16:02)
[2022-04-20] MEDS ORDERED: Nitroglycerin 2% Ointment 1 INCH/1 GM Packet ONE (16:02)
[2022-04-20] MEDS ORDERED: Ketorolac Tromethamine 30 MG/ML VIAL ONE (16:17)
[2022-04-20] MEDS ORDERED: Fentanyl 100 MCG/2 ML VIAL ONE (16:17)
[2022-04-20] MEDS ORDERED: Acetaminophen 325 MG TAB PO PRN (17:13)
[2022-04-20] MEDS ORDERED: Nitroglycerin 0.4 MG TAB (25 Tab Bottle) SL PRN (17:18)
[2022-04-20] MEDS ORDERED: Morphine 4 MG/ML VIAL SLOW IVP PRN (18:00)
[2022-04-20 18:04] LABS: Troponin I 0.085 ng/mL (< 0.028)
[2022-04-20] MEDS ORDERED: Pantoprazole 40 MG VIAL IVP SCH ×2 (18:04→18:45)
[2022-04-20] MEDS ORDERED: Lidocaine 2% Viscous Solution 20 ML, Aluminum & Magnesium Hydroxide 30 ML, Donnatal Eli... SSW SCH (18:15)
[2022-04-20] MEDS ORDERED: Morphine 4 MG/ML VIAL SLOW IVP SCH (18:15)
[2022-04-20] MEDS: Ondansetron PF 4 MG/2 ML Vial IVP PRN (19:02)
[2022-04-20] MEDS: Sodium Chloride 0.9% 1,000 ML IV SCH (19:03)
[2022-04-20 20:12] VITALS: BMI 29.9
[2022-04-20] MEDS ORDERED: Famotidine 20 MG TAB PO SCH (21:00)
[2022-04-20] MEDS ORDERED: Famotidine/PF 20 mg/2ml Vial SLOW IVP SCH (21:00)
[2022-04-20 21:08] LABS: SARS-CoV-2 NAA Rapid Test Not Detected (NotDetected)
[2022-04-20] MEDS: Mag-Al 1200 mg/1200 mg/30 ML UDCUP PO PRN (21:24)
[2022-04-20] MEDS: Sucralfate 1 GM TAB PO SCH (21:24)
[2022-04-20 21:37] LABS: Troponin I 0.086 ng/mL (< 0.028)
[2022-04-20] MEDS ORDERED: Escitalopram Oxalate 20 mg Tablet PO SCH (21:45)
[2022-04-21] MEDS: Mag-Al 1200 mg/1200 mg/30 ML UDCUP PO PRN (01:32)
[2022-04-21 05:11] LABS: #Eosinphils 0.3 thou/uL (0.0-0.7); #Lymphocytes 1.1 thou/uL (1.20-3.40); #Monocytes 0.3 thou/uL (0.11-0.59); #Neutrophils 3.6 thou/uL (1.40-6.50); %Basophils 0.3 % (0.0-1.0); %Eosinophils 6.1 % (0.0-10.0); %Lymphocytes 19.6 % (21.0-51.0); %Monocytes 6.1 % (0.0-10.0); %Neutrophils 67.9 % (42.0-75.0); Hemoglobin 12.1 g/dL (12.0-16.0); Mean Corpuscular HGB CONC 32.8 g/dL (32.0-36.0); Mean Corpuscular Hemoglobin 31.4 pg (27.0-31.0); Mean Corpuscular Volume 95.7 fl (78.0-98.0); Platelet Count 229 10x3/uL (130-400); RBC Distribution Width 11.4 % (11.5-14.5); Red Blood Cell (RBC) Count 3.85 mill/uL (4.20-5.40); White Blood Cell (WBC) Count 5.4 10x3/uL (4.8-10.8)
[2022-04-21 05:24] LABS: Anion Gap 10 mmol/L (10-20); BUN (Urea Nitrogen) 13 mg/dL (7.0-18.7); Calc. Creatinine Clearance 148 mL/min (70-130); Carbon Dioxide 21 mmol/L (22-29); Cardiac Risk 3.3 (Less than 4.5); Chloride 109 mmol/L (98-107); Cholesterol 130 mg/dl (< 200 Desired); Estimated GFR 115; Glucose 90 mg/dL (70-105); HDL Cholesterol 40 mg/dL (>60 Neg Risk); LDL Cholesterol, Calculated 80 mg/dL; Magnesium 1.9 mg/dL (1.6-2.6); Potassium 3.8 mmol/L (3.5-5.1); Sodium 136 mmol/L (136-145); Triglycerides 50 mg/dL (Less than 150)
[2022-04-21] MEDS: Sucralfate 1 GM TAB PO SCH ×2 (08:53→16:19)
[2022-04-21] MEDS: Pantoprazole 40 MG VIAL IVP SCH ×2 (08:54→21:13)
[2022-04-21] MEDS ORDERED: Aspirin Chewable 81 MG TAB PO SCH (09:00)
[2022-04-21] MEDS: Ondansetron PF 4 MG/2 ML Vial IVP PRN (09:09)
[2022-04-21] MEDS ORDERED: Promethazine HCl 25 MG in Sodium Chloride 0.9% 50 ML IVPB PRN (11:28)
[2022-04-21] MEDS: Sodium Chloride 0.9% 1,000 ML IV SCH (12:06)
[2022-04-21 12:57] LABS: Campy jejuni + coli by PCR Negative (Negative); STEC Shiga Toxin 1+2 Negative (Negative); Salmonella spp. by PCR Negative (Negative); Shigella spp + EIEC by PCR Negative (Negative)
[2022-04-21] MEDS ORDERED: Escitalopram Oxalate 20 mg Tablet PO SCH (21:00)
[2022-04-22 05:10] LABS: #Eosinphils 0.5 thou/uL (0.0-0.7); #Lymphocytes 1.5 thou/uL (1.20-3.40); #Monocytes 0.3 thou/uL (0.11-0.59); #Neutrophils 2.5 thou/uL (1.40-6.50); %Eosinophils 10.9 % (0.0-10.0); %Lymphocytes 30.2 % (21.0-51.0); Hemoglobin 12.3 g/dL (12.0-16.0); Mean Corpuscular HGB CONC 32.6 g/dL (32.0-36.0); Mean Corpuscular Hemoglobin 31.5 pg (27.0-31.0); Mean Corpuscular Volume 96.5 fl (78.0-98.0); Mean Platelet Volume 9.8 fL (7.4-10.4); Platelet Count 234 10x3/uL (130-400); RBC Distribution Width 11.3 % (11.5-14.5); White Blood Cell (WBC) Count 4.8 10x3/uL (4.8-10.8)
[2022-04-22 05:35] LABS: Anion Gap 12 mmol/L (10-20); BUN (Urea Nitrogen) 9 mg/dL (7.0-18.7); Calc. Creatinine Clearance 142 mL/min (70-130); Calcium 8.5 mg/dL (7.8-10.44); Carbon Dioxide 21 mmol/L (22-29); Chloride 107 mmol/L (98-107); Estimated GFR 109; Glucose 66 mg/dL (70-105); Magnesium 1.8 mg/dL (1.6-2.6); Potassium 3.7 mmol/L (3.5-5.1); Sodium 136 mmol/L (136-145)
[2022-04-22] MEDS: Pantoprazole 40 MG VIAL IVP SCH (09:52)
[2022-04-22] MEDS ORDERED: Midazolam HCl 2 mg/2 ml Vial ONE (11:13)
[2022-04-22] MEDS ORDERED: Lidocaine 1% PF 5 ML VIAL ONE (11:24)
[2022-04-22] MEDS ORDERED: PROPOFOL 200 MG/20 ML VIAL ONE (11:24)
[2022-04-22] MEDS ORDERED: Promethazine HCl 25 MG/ML VIAL IM PRN (11:47)
[2022-04-22] MEDS ORDERED: Ondansetron HCl/PF 4 MG/2 ML Vial IVP PRN (11:47)
[2022-04-22 12:48] VITALS: BP 125/67; TEMP 98.8
== END 2022-04-22 15:00 | disposition home or self-care (01) | DRG 391 ==
LOC: ERS 14:13 → SUATTDRO 14:13 → 2SW 18:37 → OBSVTOIN 04-22 14:23
PROVIDERS: ADMIT Family Medicine; ATTEND Internal Medicine
PROC: 0DB78ZX Excision of Stomach, Pylorus, Via Natural or Artificial Opening Endoscopic, Diagnostic (ICD-10-PCS; principal; 2022-04-22)
DX: K29.70 Gastritis, unspecified, without bleeding (principal); I21.A1 Myocardial infarction type 2; K21.9 Gastro-esophageal reflux disease without esophagitis; F41.9 Anxiety disorder, unspecified; Z20.822 Contact with and (suspected) exposure to COVID-19; Z90.49 Acquired absence of other specified parts of digestive tract; Z98.51 Tubal ligation status; Z90.09 Acquired absence of other part of head and neck; Z88.1 Allergy status to other antibiotic agents; Z79.899 Other long term (current) drug therapy
CPT/HCPCS: 36415; 71260; 74177; 80048; 80053; 80061; 82553; 83036; 83605; 83630; 83690; 83735; 84443; 84484; 84703; 85025; 86850; 86900; 86901; 87324; 87338; 87449; 87505; 88305; 88342; 93005; 93306; 94760; 96374; 96375; 96376; C9113; G0378; J1885; J2250; J2270; J2405; J2550; J2704; J3010; J7050; Q9967